=== PATIENT | male | born 1980 | race Caucasian/White ===

== ENCOUNTER → 2018-04-18 | Outpatient (CLI) | payer OTHER ==
[~2018-04-18] VITALS: Ht 167.6 cm; Wt 85.3 kg
[~2018-04-18] MED LIST: ATARAX50 MG PO; BACTRIM DS 8001 TAB PO; DESYREL 100MG100 MG PO; FLEXERIL 1010 MG/TAB PO; LEXAPRO20 MG PO; MOTRIN SUSP20 MG/ML PO; NEURONTIN600 MG/TAB; NORCO 325 MG-51 TAB PO; ZESTORETIC 25 M1 TAB PO; ZYPREXA ZYDIS5 MG PO
[2018-04-18 14:01] VITALS: BP 117/60; PULSE 79
[2018-04-18 15:19] VITALS: BP 112/64; PULSE 85
[2018-04-18 15:30] VITALS: BP 101/65; PULSE 82
[2018-04-18 15:45] VITALS: BP 112/66; PULSE 80
== END ==
LOC: COL.RAD 13:30
DX: M75.122 Complete rotator cuff tear or rupture of left shoulder, not specified as traumatic (principal); M75.112 Incomplete rotator cuff tear or rupture of left shoulder, not specified as traumatic; M89.312 Hypertrophy of bone, left shoulder
CPT/HCPCS: J2250; J2704

== ENCOUNTER → 2019-01-07 | Outpatient (CLI) | payer OTHER ==
[~2019-01-07] VITALS: Ht 167.6 cm; Wt 98.1 kg
[~2019-01-07] MED LIST changes: +WELLBUTRIN 75MG75 MG PO
[2019-01-07 13:32] VITALS: BP 118/77; PULSE 86
[2019-01-07 15:00] VITALS: BP 118/77; PULSE 81
--- NOTE | 2019-01-07 15:22 | NUR ---
pt taken down in wheelchair to v and was able to transfer independently
== END ==
LOC: COL.RAD 13:00
DX: M75.22 Bicipital tendinitis, left shoulder (principal); Z98.890 Other specified postprocedural states
CPT/HCPCS: J2250; J2704

== ENCOUNTER 2019-11-22 06:25 | Day surgery (SDC) | payer OTHER ==
[~2019-11-22] VITALS: Ht 167.6 cm; Wt 92.1 kg
[2019-11-22 06:50] VITALS: BP 89/60; PULSE 80; TEMP 98.2
[2019-11-22] MEDS ORDERED: ACIPHEX20 MG PO (06:54)
[2019-11-22] MEDS ORDERED: HCTZ 25MG TAB25 MG PO (06:55)
[2019-11-22] MEDS ORDERED: DESYREL 100MG100 MG PO (06:56)
[2019-11-22] MEDS ORDERED: BUSPAR10 MG PO (06:57)
[2019-11-22 08:00] VITALS: BP 93/62; PULSE 75; TEMP 97.4
--- NOTE | 2019-11-22 08:00 | NUR ---
TO BAY 5 PER OWN WILL STEADY GAIT. ALERT ORIENTED X3, TALKING TO AND STAFF. AMBULATED TO RECLINER WITH ASSIST AND TOLERATED WELL. RECEIVED MUFFIN AND WATER.
[2019-11-22 08:15] VITALS: BP 92/75; PULSE 75
--- NOTE | 2019-11-22 08:15 | NUR ---
ATE 100% AND TOLERATED WELL.
[2019-11-22] MEDS ORDERED: PROTONIX 40MG T40 MG PO (08:20)
[2019-11-22 08:30] VITALS: BP 104/72; PULSE 17
--- NOTE | 2019-11-22 08:30 | NUR ---
DR MCDUFFIE INTO TALK WITH PATIENT AND HIS .
--- NOTE | 2019-11-22 08:40 | NUR ---
DISCONTINUED IV AND INT- CATHETER INTACT PATIENT AMBULATED TO BATHROOM
--- NOTE | 2019-11-22 08:50 | NUR ---
RECEIVED DISCHARGE INSTRUCTIONS AND VERBALIZED UNDERSTANDING. PATIENT GETTING DRESSED
--- NOTE | 2019-11-22 09:00 | NUR ---
DISCHARGED PER WC BY NURSING STAFF TO PRIVATE CAR IN CARE OF -MOU[facility].
== END 2019-11-22 09:16 | disposition home or self-care (01) ==
LOC: SDCO 06:25
DX: R19.7 Diarrhea, unspecified (principal); I10 Essential (primary) hypertension; G47.33 Obstructive sleep apnea (adult) (pediatric); F17.210 Nicotine dependence, cigarettes, uncomplicated; F41.9 Anxiety disorder, unspecified; F43.10 Post-traumatic stress disorder, unspecified; Z79.899 Other long term (current) drug therapy; Z88.0 Allergy status to penicillin; Z88.8 Allergy status to other drugs, medicaments and biological substances
CPT/HCPCS: J2704; J7030

== ENCOUNTER → 2020-06-23 | Outpatient (CLI) | payer OTHER ==
[~2020-06-23] MED LIST changes: +ACIPHEX20 MG PO; +BUSPAR10 MG PO; +HCTZ 25MG TAB25 MG PO; +PROTONIX 40MG T40 MG PO
== END ==
LOC: COL.RAD 07:29
DX: K21.9 Gastro-esophageal reflux disease without esophagitis (principal); K22.70 Barrett's esophagus without dysplasia; K62.5 Hemorrhage of anus and rectum; K58.9 Irritable bowel syndrome, unspecified
CPT/HCPCS: A9541

== ENCOUNTER → 2024-03-13 | Outpatient (CLI) | payer OTHER ==
[~2024-03-13] MED LIST changes: +Iohexol 300 - 100 ML VIAL IV ONE; +NS 100 ML IV SCH
== END ==
LOC: COL.RAD 06:18
DX: N28.1 Cyst of kidney, acquired (principal); R19.7 Diarrhea, unspecified; R11.2 Nausea with vomiting, unspecified
CPT/HCPCS: A9541-JZ; Q9967